=== PATIENT | female | born 1980 | race Caucasian/White ===

== ENCOUNTER 2016-10-30 05:37 | Day surgery (SDC) | payer BC, MEDICAID, OTHER ==
[2016-10-23 10:19] LABS: HEMATOCRIT 39.5 % (36.0-47.0); HEMOGLOBIN 13.5 g/dL (12.0-15.5); MEAN CORPUSCULAR HEMOGLOBIN 30.8 pg (27.0-33.4); MEAN CORPUSCULAR HGB CONC 34.2 g/dL (32.0-36.0); MEAN CORPUSCULAR VOLUME 90 fl (80-97); RED BLOOD COUNT 4.38 10^6/uL (3.72-5.28); RED CELL DISTRIBUTION WIDTH 12.9 % (11.5-14.0); WHITE BLOOD COUNT 4.2 10^3/uL (4.0-10.5)
[2016-10-23 11:20] LABS: ALANINE AMINOTRANSFERASE 23 U/L (9-52); ALBUMIN 4.5 g/dL (3.5-5.0); ALKALINE PHOSPHATASE 64 U/L (38-126); ANION GAP 11 (5-19); ASPARTATE AMINO TRANSFERASE 19 U/L (14-36); BILIRUBIN,DIRECT 0.4 mg/dL (0.0-0.4); BILIRUBIN,TOTAL 0.6 mg/dL (0.2-1.3); BLOOD UREA NITROGEN 15 mg/dL (7-20); CALCIUM 9.6 mg/dL (8.4-10.2); CARBON DIOXIDE 26 mmol/L (22-30); CHLORIDE 104 mmol/L (98-107); CREATININE RESULT 0.89 mg/dL (0.52-1.25); GLUCOSE 80 mg/dL (75-110); POTASSIUM 4.3 mmol/L (3.6-5.0); TOTAL PROTEIN 7.5 g/dL (6.3-8.2)
[~2016-10-30 05:37] MED LIST: CEFAZOLIN 1 GM/D5W RTU 1 GM/50 ML RTUPB IV PRN; LIDOCAINE 0.5% INJ-PF (5 MG/ML) 50 ML SDV INJ PRN; RINGERS SOLUTION,LACTATED 1,000 ML IV PRN
[2016-10-30] MEDS ORDERED: LIDOCAINE 1% INJ-PF (10 MG/ML) 30 ML SDV ONE (06:34)
[2016-10-30] MEDS ORDERED: SCOPOLAMINE HYDROBROMIDE 1.5 MG PATCH.TD72 ONE (06:43)
[2016-10-30] MEDS ORDERED: FAMOTIDINE INJ/PF 20 MG/2 ML SDV IV ONE ×2 (06:44→06:55)
[2016-10-30] MEDS ORDERED: SCOPOLAMINE HYDROBROMIDE 1.5 MG PATCH.TD72 TD ONE (06:55)
[2016-10-30] MEDS ORDERED: MIDAZOLAM 2 MG/2 ML INJ ONE (06:59)
[2016-10-30] MEDS ORDERED: FENTANYL CITRATE INJ/PF 100 MCG/2 ML AMPUL ONE (06:59)
[2016-10-30] MEDS ORDERED: ONDANSETRON HCL INJ/PF 4 MG/2 ML SDV ONE (06:59)
[2016-10-30] MEDS ORDERED: DEXAMETHASONE SOD PHOSPHATE INJ 4 MG/1 ML VIAL ONE (06:59)
[2016-10-30] MEDS ORDERED: IBUPROFEN INJ 800 MG/8 ML VIAL IV ONE (07:00)
[2016-10-30] MEDS ORDERED: PROPOFOL INJ 200 MG/20 ML VIAL IV ONE (07:00)
[2016-10-30] MEDS ORDERED: MORPHINE SULFATE 10 MG/ML INJ ONE (07:00)
[2016-10-30] MEDS ORDERED: MEPERIDINE HCL/PF INJ 25 MG/1 ML DISP.SYRIN IV PRN (07:48)
[2016-10-30] MEDS ORDERED: MORPHINE SULFATE 10 MG/ML INJ IV PRN (07:48)
[2016-10-30] MEDS ORDERED: FENTANYL CITRATE INJ/PF 100 MCG/2 ML AMPUL IV PRN ×3 (07:48)
[2016-10-30] MEDS ORDERED: DIPHENHYDRAMINE HCL 50 MG/ML VIAL IV PRN (07:48)
[2016-10-30] MEDS ORDERED: PROMETHAZINE HCL INJ 25 MG/1 ML VIAL IV PRN ×3 (07:48→08:38)
[2016-10-30] MEDS ORDERED: PROMETHAZINE HCL INJ 25 MG/1 ML VIAL ONE (08:21)
[2016-10-30] MEDS ORDERED: OXYCODONE-ACETAMINOPHEN 5-325 MG TABLET PO PRN ×2 (08:37→08:38)
--- NOTE | 2016-10-30 08:37 | OPERATIVE REPORT E ---
Operative Report NAME: RODNEY GREGORY : 1980 AGE: 36Y DATE OF SURGERY: 10/30/2016 ROOM: PREOPERATIVE DIAGNOSES: 1. DYSFUNCTIONAL UTERINE BLEEDING. 2. MENOMETRORRHAGIA. POSTOPERATIVE DIAGNOSES: 1. DYSFUNCTIONAL UTERINE BLEEDING. 2. MENOMETRORRHAGIA. OPERATION: 1. D and C. 2. Hysteroscopy. 3. NovaSure. SURGEON: DONNA DOS SANTOS M.D. ANESTHESIA: General. PERTINENT HISTORY AND OPERATIVE FINDINGS: This is a 36-year-old multiparous female who had been having trouble with irregular and heavy bleeding and ultimately opted to have a NovaSure procedure. She was aware of the risks and benefits and potential for failure. At the time of surgery, the vagina and vulva appeared to be normal. The cervix was normal. The uterus was retroflexed, normal size. Adnexa negative. OPERATIVE PROCEDURE: The patient was brought into the OR, placed on the table in a supine position, inducted under general anesthesia. Following this, she was repositioned in a dorsal lithotomy position, prepped and draped in a sterile fashion. The bladder was drained of about 50 mL of clear yellow urine and a pelvic under anesthesia was performed which revealed the above findings of normal vulva, vagina, cervix, a uterus that was normal in size and shape, adnexa that was negative. The uterus was retroflexed. Having established this, the weighted speculum was placed. The cervix was grasped on the anterior lip with 2 single-tooth tenaculum. It was sounded to 9.5 cm. The cervical length was ascertained by using the dilators to be 4 cm, giving a cavity length of 5.5 cm. Having established this, the cervix was dilated using the dilators to a #8 and then the hysteroscope was inserted. The contents of the uterine cavity had already been curetted. There was good visualization. No evidence of polyps or fibroids. The hysteroscope was removed after removing the normal saline and the NovaSure was connected up and gently inserted through the cervical os. It was carried up to the fundus and then it was gently opened up. Then going north, south, east, west and rotating 90 degrees in both directions, doing 3 times it was assessed that the cavity width was 4.4 cm. Having established this, the power unit was set. The equipment was enabled and the NovaSure was carried out. This terminated the procedure. The NovaSure was closed and removed. The hysteroscope was reinserted. There was evidence of a good burn. The saline was allowed to be extracted with suction and the tenaculums were removed. Hemostasis was adequate. The weighted speculum was removed and the procedure was terminated. The patient was put back in the supine position, anesthesia was discontinue. She was transferred to the recovery room in satisfactory condition. DICTATING PHYSICIAN: DONNA DOS SANTOS M.D. [id number] PHY#: [id number] ID: [id number] JOB#: [id number] ACCT: [id number] cc:DONNA DOS SANTOS M.D. >
[2016-10-30] MEDS ORDERED: HYDROMORPHONE HCL INJ/PF 2 MG/ML AMPULE IV PRN (09:07)
[2016-10-30] MEDS ORDERED: SUCCINYLCHOLINE CHLORIDE INJ 200 MG/10 ML VIAL ONE (10:10)
[2016-10-30 10:17] VITALS: BP 114/75
== END 2016-10-30 10:05 | disposition home or self-care (01) ==
LOC: OROUT 05:37
PROVIDERS: ATTEND Obstetrics & Gynecology
PROC: 0U5B8ZZ Destruction of Endometrium, Via Natural or Artificial Opening Endoscopic (ICD-10-PCS; principal; 2016-10-30 07:30)
DX: N92.1 Excessive and frequent menstruation with irregular cycle (principal); N93.8 Other specified abnormal uterine and vaginal bleeding; G43.909 Migraine, unspecified, not intractable, without status migrainosus; Z79.1 Long term (current) use of non-steroidal anti-inflammatories (NSAID)
CPT/HCPCS: 36415; 85027; 81025; 80053; 88305 ×2; 58563; J2250; J0690; J1100; J3010; J2270; J2550; J0330; J2405; J2704; S0028; J1741; 952; J3490